=== PATIENT | male | born 1985 | race Caucasian/White ===

== ENCOUNTER 2018-02-22 19:04 | Emergency (ER) | payer OTHER ==
[~2018-02-22] VITALS: Ht 180.3 cm; Wt 74.4 kg
[2018-02-22 20:40] LABS: URINE BILIRUBIN NEGATIVE (Negative); URINE BLOOD NEGATIVE (Negative); URINE CLARITY CLEAR; URINE COLOR YELLOW; URINE GLUCOSE-RANDOM NEGATIVE (Negative); URINE KETONES NEGATIVE (Negative); URINE LEUKOCYTES-REFLEX NEGATIVE (Negative); URINE NITRITE-REFLEX NEGATIVE (Negative); URINE PROTEIN NEGATIVE (Negative); URINE SPECIFIC GRAVITY >= 1.030 (1.005-1.030); URINE UROBILINOGEN 0.2 E.U./dl (0.2-1.0)
[2018-02-22] MEDS ORDERED: NORFLEX100 MG PO (20:47)
[2018-02-22] MEDS ORDERED: NORCO 5-325 TA1 EAC1 PO (20:47)
[2018-02-22] MEDS ORDERED: PREDNISONE 10 M10 M1 PO (20:47)
[2018-02-22 21:09] VITALS: BP 130/80
== END 2018-02-22 21:09 | disposition home or self-care (01) ==
LOC: M.ERS 19:04
PROVIDERS: Nurse Practitioner
DX: M54.30 Sciatica, unspecified side (principal); K59.00 Constipation, unspecified